=== PATIENT | male | born 1960 | race Two or more races ===

== ENCOUNTER → 2019-03-12 | Outpatient (CLI) | payer MEDICARE, MEDICAID ==
[~2019-03-12] VITALS: Ht 175.3 cm; Wt 64.9 kg
[2019-03-12 09:00] VITALS: BP 144/64
== END | disposition home or self-care (01) ==
LOC: HBOWC 08:46
PROVIDERS: ATTEND Emergency Medicine
DX: L89.153 Pressure ulcer of sacral region, stage 3 (principal); E46 Unspecified protein-calorie malnutrition; I25.2 Old myocardial infarction; E11.39 Type 2 diabetes mellitus with other diabetic ophthalmic complication; H42 Glaucoma in diseases classified elsewhere; Z86.73 Personal history of transient ischemic attack (TIA), and cerebral infarction without residual deficits

== ENCOUNTER → 2019-04-01 | Outpatient (CLI) | payer MEDICARE, MEDICAID ==
[~2019-04-01] MED LIST: AMLO10TA7 PO; CARV25 PO; CLOP75TA3 PO; FURO80 PO; INSLAN SQ; INSU100V SQ; ISOS30TA6 PO; KDUR20 PO; LIDOCAINE 4% 50 ML SOLUTION TP ONE; MIRT15 PO; TAMS-1 PO; TRAM50TA4 PO
[2019-04-01 08:00] VITALS: BP 115/55
[2019-04-01 12:37] LABS: BASOPHILS % (AUTO) 0.9 % (0.0-2.0); EOSINOPHILS % (AUTO) 1.5 % (1.0-6.0); HEMOGLOBIN 14.4 g/dL (13.5-17.5); LYMPHOCYTES # (AUTO) 0.7 K/uL (1.0-4.8); LYMPHOCYTES % (AUTO) 11.4 % (22.0-44.0); MEAN CORPUSCULAR HEMOGLOBIN 21.6 pg (26.0-34.0); MEAN CORPUSCULAR VOLUME 72 fL (80-100); MONOCYTES # (AUTO) 0.3 K/uL (0.1-1.0); MONOCYTES % (AUTO) 5.1 % (2.0-9.0); NEUTROPHILS # (AUTO) 4.7 K/uL (1.8-7.7); NEUTROPHILS % (AUTO) 81.1 % (40.0-70.0); PLATELET COUNT (AUTO) 204 K/uL (150-450); RED BLOOD CELL COUNT(AUTO) 6.66 MIL/uL (4.50-5.90); RED CELL DISTRIBUTION WIDTH 20.1 % (11.5-14.5)
[2019-04-01 12:43] LABS: HEMOGLOBIN A1C 7.6 % (4.5-6.2)
[2019-04-01 12:54] LABS: ALBUMIN 3.1 g/dL (3.4-5.0); BILIRUBIN,TOTAL 0.7 mg/dL (0.1-1.0); CREATININE 1.5 mg/dL (0.60-1.30); POTASSIUM 3.3 mmol/L (3.5-5.1); TOTAL PROTEIN, SERUM 6.5 g/dL (6.4-8.2)
[2019-04-01 13:04] LABS: INR 1.1 (0.9-1.1); PROTHROMBIN TIME 11.1 SEC (9.4-11.6)
== END | disposition home or self-care (01) ==
LOC: HBOWC 07:54
PROVIDERS: ATTEND Surgery Plastic and Reconstructive Surgery
DX: E11.621 Type 2 diabetes mellitus with foot ulcer (principal); L89.154 Pressure ulcer of sacral region, stage 4; R59.0 Localized enlarged lymph nodes
CPT/HCPCS: 83036; 84134; 93970

== ENCOUNTER → 2019-04-08 | Outpatient (CLI) | payer MEDICARE, MEDICAID ==
[2019-04-08 08:26] VITALS: BP 138/78
== END | disposition home or self-care (01) ==
LOC: HBOWC 08:10
PROVIDERS: ATTEND Surgery Plastic and Reconstructive Surgery
DX: E11.622 Type 2 diabetes mellitus with other skin ulcer (principal); L89.153 Pressure ulcer of sacral region, stage 3; L98.495 Non-pressure chronic ulcer of skin of other sites with muscle involvement without evidence of necrosis; E46 Unspecified protein-calorie malnutrition; I25.2 Old myocardial infarction; E11.39 Type 2 diabetes mellitus with other diabetic ophthalmic complication; H42 Glaucoma in diseases classified elsewhere; M62.50 Muscle wasting and atrophy, not elsewhere classified, unspecified site; R54 Age-related physical debility; Z86.73 Personal history of transient ischemic attack (TIA), and cerebral infarction without residual deficits; Z79.4 Long term (current) use of insulin
CPT/HCPCS: 11043

== ENCOUNTER → 2019-04-15 | Outpatient (CLI) | payer OTHER ==
[2019-04-15 08:29] VITALS: BP 136/65
== END | disposition home or self-care (01) ==
LOC: HBOWC 08:01
PROVIDERS: ATTEND Surgery Plastic and Reconstructive Surgery
DX: E11.622 Type 2 diabetes mellitus with other skin ulcer (principal); L89.153 Pressure ulcer of sacral region, stage 3; L98.495 Non-pressure chronic ulcer of skin of other sites with muscle involvement without evidence of necrosis; E46 Unspecified protein-calorie malnutrition; I25.2 Old myocardial infarction; E11.39 Type 2 diabetes mellitus with other diabetic ophthalmic complication; H42 Glaucoma in diseases classified elsewhere; R54 Age-related physical debility; Z86.73 Personal history of transient ischemic attack (TIA), and cerebral infarction without residual deficits; Z79.4 Long term (current) use of insulin
CPT/HCPCS: 11043

== ENCOUNTER → 2019-04-22 | Outpatient (CLI) | payer OTHER ==
[2019-04-22 08:00] VITALS: BP 118/57
== END | disposition home or self-care (01) ==
LOC: HBOWC 07:59
PROVIDERS: ATTEND Surgery Plastic and Reconstructive Surgery
DX: E11.622 Type 2 diabetes mellitus with other skin ulcer (principal); L89.153 Pressure ulcer of sacral region, stage 3; L98.495 Non-pressure chronic ulcer of skin of other sites with muscle involvement without evidence of necrosis; E46 Unspecified protein-calorie malnutrition; I25.2 Old myocardial infarction; E11.39 Type 2 diabetes mellitus with other diabetic ophthalmic complication; H42 Glaucoma in diseases classified elsewhere; R54 Age-related physical debility; M62.50 Muscle wasting and atrophy, not elsewhere classified, unspecified site; Z79.4 Long term (current) use of insulin; Z86.73 Personal history of transient ischemic attack (TIA), and cerebral infarction without residual deficits
CPT/HCPCS: 11043

== ENCOUNTER → 2019-04-29 | Outpatient (CLI) | payer OTHER ==
[~2019-04-29] MED LIST changes: -LIDOCAINE 4% 50 ML SOLUTION TP ONE
[2019-04-29 08:05] VITALS: BP 149/75
== END | disposition home or self-care (01) ==
LOC: HBOWC 07:52
PROVIDERS: ATTEND Surgery Plastic and Reconstructive Surgery
DX: E11.622 Type 2 diabetes mellitus with other skin ulcer (principal); L89.153 Pressure ulcer of sacral region, stage 3; L98.495 Non-pressure chronic ulcer of skin of other sites with muscle involvement without evidence of necrosis; E46 Unspecified protein-calorie malnutrition; I25.2 Old myocardial infarction; E11.39 Type 2 diabetes mellitus with other diabetic ophthalmic complication; H42 Glaucoma in diseases classified elsewhere; R54 Age-related physical debility; M62.562 Muscle wasting and atrophy, not elsewhere classified, left lower leg; M62.561 Muscle wasting and atrophy, not elsewhere classified, right lower leg; Z86.73 Personal history of transient ischemic attack (TIA), and cerebral infarction without residual deficits; Z79.4 Long term (current) use of insulin
CPT/HCPCS: 11043

== ENCOUNTER → 2019-05-06 | Outpatient (CLI) | payer OTHER ==
[2019-05-06 08:05] VITALS: BP 132/65
== END | disposition home or self-care (01) ==
LOC: HBOWC 08:15
PROVIDERS: ATTEND Surgery Plastic and Reconstructive Surgery
DX: E11.622 Type 2 diabetes mellitus with other skin ulcer (principal); L89.153 Pressure ulcer of sacral region, stage 3; L98.495 Non-pressure chronic ulcer of skin of other sites with muscle involvement without evidence of necrosis; E46 Unspecified protein-calorie malnutrition; I25.2 Old myocardial infarction; E11.39 Type 2 diabetes mellitus with other diabetic ophthalmic complication; H42 Glaucoma in diseases classified elsewhere; R54 Age-related physical debility; M62.562 Muscle wasting and atrophy, not elsewhere classified, left lower leg; M62.561 Muscle wasting and atrophy, not elsewhere classified, right lower leg; Z86.73 Personal history of transient ischemic attack (TIA), and cerebral infarction without residual deficits; Z79.4 Long term (current) use of insulin
CPT/HCPCS: 11043

== ENCOUNTER → 2019-06-03 | Outpatient (CLI) | payer OTHER ==
[~2019-06-03] MED LIST changes: +LIDOCAINE 4% 50 ML SOLUTION TP ONE
[2019-06-03 08:10] VITALS: BP 130/67
== END | disposition home or self-care (01) ==
LOC: HBOWC 08:07
PROVIDERS: ATTEND Surgery Plastic and Reconstructive Surgery
DX: E11.622 Type 2 diabetes mellitus with other skin ulcer (principal); L89.153 Pressure ulcer of sacral region, stage 3; L98.495 Non-pressure chronic ulcer of skin of other sites with muscle involvement without evidence of necrosis; E46 Unspecified protein-calorie malnutrition; I25.2 Old myocardial infarction; E11.39 Type 2 diabetes mellitus with other diabetic ophthalmic complication; H42 Glaucoma in diseases classified elsewhere; M62.562 Muscle wasting and atrophy, not elsewhere classified, left lower leg; M62.561 Muscle wasting and atrophy, not elsewhere classified, right lower leg; R53.81 Other malaise; Z86.73 Personal history of transient ischemic attack (TIA), and cerebral infarction without residual deficits; Z79.4 Long term (current) use of insulin
CPT/HCPCS: 11043

== ENCOUNTER → 2019-06-10 | Outpatient (CLI) | payer OTHER ==
[2019-06-10 08:00] VITALS: BP 131/63
== END | disposition home or self-care (01) ==
LOC: HBOWC 08:11
PROVIDERS: ATTEND Surgery Plastic and Reconstructive Surgery
DX: E11.622 Type 2 diabetes mellitus with other skin ulcer (principal); L89.153 Pressure ulcer of sacral region, stage 3; L98.495 Non-pressure chronic ulcer of skin of other sites with muscle involvement without evidence of necrosis; E46 Unspecified protein-calorie malnutrition; I25.2 Old myocardial infarction; E11.39 Type 2 diabetes mellitus with other diabetic ophthalmic complication; H42 Glaucoma in diseases classified elsewhere; M62.562 Muscle wasting and atrophy, not elsewhere classified, left lower leg; M62.561 Muscle wasting and atrophy, not elsewhere classified, right lower leg; R53.81 Other malaise; Z86.73 Personal history of transient ischemic attack (TIA), and cerebral infarction without residual deficits; Z79.4 Long term (current) use of insulin
CPT/HCPCS: 11043; 97605

== ENCOUNTER → 2019-06-17 | Outpatient (CLI) | payer MEDICARE, OTHER ==
[~2019-06-17] MED LIST changes: -LIDOCAINE 4% 50 ML SOLUTION TP ONE
[2019-06-17 08:43] VITALS: BP 137/64
== END | disposition home or self-care (01) ==
LOC: HBOWC 08:03
PROVIDERS: ATTEND Surgery Plastic and Reconstructive Surgery
DX: E11.622 Type 2 diabetes mellitus with other skin ulcer (principal); L89.153 Pressure ulcer of sacral region, stage 3; L98.495 Non-pressure chronic ulcer of skin of other sites with muscle involvement without evidence of necrosis; E46 Unspecified protein-calorie malnutrition; I25.2 Old myocardial infarction; E11.39 Type 2 diabetes mellitus with other diabetic ophthalmic complication; H42 Glaucoma in diseases classified elsewhere; M62.562 Muscle wasting and atrophy, not elsewhere classified, left lower leg; M62.561 Muscle wasting and atrophy, not elsewhere classified, right lower leg; R53.81 Other malaise; Z86.73 Personal history of transient ischemic attack (TIA), and cerebral infarction without residual deficits; Z79.4 Long term (current) use of insulin
CPT/HCPCS: 11043; 97605

== ENCOUNTER → 2019-06-25 | Outpatient (CLI) | payer MEDICARE, OTHER ==
[~2019-06-25] MED LIST changes: +LIDOCAINE 4% 50 ML SOLUTION TP ONE
[2019-06-25 08:00] VITALS: BP 144/73
== END | disposition home or self-care (01) ==
LOC: HBOWC 08:36
PROVIDERS: ATTEND Emergency Medicine
DX: E11.622 Type 2 diabetes mellitus with other skin ulcer (principal); L89.153 Pressure ulcer of sacral region, stage 3; L98.495 Non-pressure chronic ulcer of skin of other sites with muscle involvement without evidence of necrosis; E46 Unspecified protein-calorie malnutrition; I25.2 Old myocardial infarction; E11.39 Type 2 diabetes mellitus with other diabetic ophthalmic complication; H42 Glaucoma in diseases classified elsewhere; M62.562 Muscle wasting and atrophy, not elsewhere classified, left lower leg; M62.561 Muscle wasting and atrophy, not elsewhere classified, right lower leg; R53.81 Other malaise; Z86.73 Personal history of transient ischemic attack (TIA), and cerebral infarction without residual deficits; Z79.4 Long term (current) use of insulin
CPT/HCPCS: 11042

== ENCOUNTER → 2019-08-12 | Outpatient (CLI) | payer MEDICARE, OTHER ==
[~2019-08-12] MED LIST changes: +LIDOCAINE 2% 5 ML JELLY TP ONE; -LIDOCAINE 4% 50 ML SOLUTION TP ONE
== END | disposition home or self-care (01) ==
LOC: HBOWC 08:11
PROVIDERS: ATTEND Surgery Plastic and Reconstructive Surgery
DX: E11.622 Type 2 diabetes mellitus with other skin ulcer (principal); L89.153 Pressure ulcer of sacral region, stage 3; L98.495 Non-pressure chronic ulcer of skin of other sites with muscle involvement without evidence of necrosis; E46 Unspecified protein-calorie malnutrition; I25.2 Old myocardial infarction; E11.39 Type 2 diabetes mellitus with other diabetic ophthalmic complication; H42 Glaucoma in diseases classified elsewhere; M62.562 Muscle wasting and atrophy, not elsewhere classified, left lower leg; M62.561 Muscle wasting and atrophy, not elsewhere classified, right lower leg; R53.81 Other malaise; Z86.73 Personal history of transient ischemic attack (TIA), and cerebral infarction without residual deficits; Z79.4 Long term (current) use of insulin
CPT/HCPCS: 11044

== ENCOUNTER → 2019-08-19 | Outpatient (CLI) | payer MEDICARE, OTHER ==
[~2019-08-19] MED LIST changes: -LIDOCAINE 2% 5 ML JELLY TP ONE
== END | disposition home or self-care (01) ==
LOC: HBOWC 07:50
PROVIDERS: ATTEND Surgery Plastic and Reconstructive Surgery
DX: E11.622 Type 2 diabetes mellitus with other skin ulcer (principal); L89.153 Pressure ulcer of sacral region, stage 3; L98.495 Non-pressure chronic ulcer of skin of other sites with muscle involvement without evidence of necrosis; E46 Unspecified protein-calorie malnutrition; I25.2 Old myocardial infarction; E11.39 Type 2 diabetes mellitus with other diabetic ophthalmic complication; H42 Glaucoma in diseases classified elsewhere; M62.562 Muscle wasting and atrophy, not elsewhere classified, left lower leg; M62.561 Muscle wasting and atrophy, not elsewhere classified, right lower leg; R53.81 Other malaise; Z86.73 Personal history of transient ischemic attack (TIA), and cerebral infarction without residual deficits; Z79.4 Long term (current) use of insulin
CPT/HCPCS: 11043

== ENCOUNTER → 2019-09-02 | Outpatient (CLI) | payer MEDICARE, OTHER ==
[~2019-09-02] MED LIST changes: +LIDOCAINE 4% 50 ML SOLUTION TP ONE; +MIRT-92 PO; -MIRT15 PO
== END | disposition home or self-care (01) ==
LOC: HBOWC 09:15
PROVIDERS: ATTEND Surgery Plastic and Reconstructive Surgery
DX: E11.622 Type 2 diabetes mellitus with other skin ulcer (principal); L89.153 Pressure ulcer of sacral region, stage 3; L98.495 Non-pressure chronic ulcer of skin of other sites with muscle involvement without evidence of necrosis; E46 Unspecified protein-calorie malnutrition; I25.2 Old myocardial infarction; E11.39 Type 2 diabetes mellitus with other diabetic ophthalmic complication; H42 Glaucoma in diseases classified elsewhere; M62.562 Muscle wasting and atrophy, not elsewhere classified, left lower leg; M62.561 Muscle wasting and atrophy, not elsewhere classified, right lower leg; R53.81 Other malaise; Z86.73 Personal history of transient ischemic attack (TIA), and cerebral infarction without residual deficits; Z79.4 Long term (current) use of insulin
CPT/HCPCS: 11043

== ENCOUNTER → 2019-09-16 | Outpatient (CLI) | payer MEDICARE, OTHER ==
[~2019-09-16] MED LIST changes: -LIDOCAINE 4% 50 ML SOLUTION TP ONE
== END | disposition home or self-care (01) ==
LOC: HBOWC 08:14
PROVIDERS: ATTEND Surgery Plastic and Reconstructive Surgery
DX: E11.622 Type 2 diabetes mellitus with other skin ulcer (principal); L89.153 Pressure ulcer of sacral region, stage 3; L98.495 Non-pressure chronic ulcer of skin of other sites with muscle involvement without evidence of necrosis; E46 Unspecified protein-calorie malnutrition; I25.2 Old myocardial infarction; E11.39 Type 2 diabetes mellitus with other diabetic ophthalmic complication; H42 Glaucoma in diseases classified elsewhere; M62.562 Muscle wasting and atrophy, not elsewhere classified, left lower leg; M62.561 Muscle wasting and atrophy, not elsewhere classified, right lower leg; R53.81 Other malaise; Z86.73 Personal history of transient ischemic attack (TIA), and cerebral infarction without residual deficits; Z79.4 Long term (current) use of insulin
CPT/HCPCS: 11044

== ENCOUNTER → 2019-09-30 | Outpatient (CLI) | payer MEDICARE, OTHER ==
[~2019-09-30] MED LIST changes: +LIDOCAINE 2% 5 ML JELLY ONE
== END | disposition home or self-care (01) ==
LOC: HBOWC 07:49
PROVIDERS: ATTEND Surgery Plastic and Reconstructive Surgery
DX: E11.622 Type 2 diabetes mellitus with other skin ulcer (principal); L89.153 Pressure ulcer of sacral region, stage 3; L98.495 Non-pressure chronic ulcer of skin of other sites with muscle involvement without evidence of necrosis; E46 Unspecified protein-calorie malnutrition; I25.2 Old myocardial infarction; E11.39 Type 2 diabetes mellitus with other diabetic ophthalmic complication; H42 Glaucoma in diseases classified elsewhere; M62.562 Muscle wasting and atrophy, not elsewhere classified, left lower leg; M62.561 Muscle wasting and atrophy, not elsewhere classified, right lower leg; R53.81 Other malaise; Z86.73 Personal history of transient ischemic attack (TIA), and cerebral infarction without residual deficits; Z79.4 Long term (current) use of insulin
CPT/HCPCS: 11043

== ENCOUNTER → 2019-10-07 | Outpatient (CLI) | payer MEDICARE, OTHER ==
[~2019-10-07] MED LIST changes: -LIDOCAINE 2% 5 ML JELLY ONE; +LIDOCAINE 2% 5 ML JELLY TP ONE
== END | disposition home or self-care (01) ==
LOC: HBOWC 09:51
PROVIDERS: ATTEND Surgery Plastic and Reconstructive Surgery
DX: E11.622 Type 2 diabetes mellitus with other skin ulcer (principal); L89.154 Pressure ulcer of sacral region, stage 4; L98.495 Non-pressure chronic ulcer of skin of other sites with muscle involvement without evidence of necrosis; I25.2 Old myocardial infarction; E11.39 Type 2 diabetes mellitus with other diabetic ophthalmic complication; H42 Glaucoma in diseases classified elsewhere; M62.562 Muscle wasting and atrophy, not elsewhere classified, left lower leg; M62.561 Muscle wasting and atrophy, not elsewhere classified, right lower leg; R26.9 Unspecified abnormalities of gait and mobility; E44.0 Moderate protein-calorie malnutrition; I25.10 Atherosclerotic heart disease of native coronary artery without angina pectoris; K21.9 Gastro-esophageal reflux disease without esophagitis; E78.5 Hyperlipidemia, unspecified; I11.0 Hypertensive heart disease with heart failure; I50.32 Chronic diastolic (congestive) heart failure; Z79.4 Long term (current) use of insulin; Z68.20 Body mass index [BMI] 20.0-20.9, adult; Z86.73 Personal history of transient ischemic attack (TIA), and cerebral infarction without residual deficits
CPT/HCPCS: 11043

== ENCOUNTER → 2019-10-14 | Outpatient (CLI) | payer MEDICARE, OTHER ==
[~2019-10-14] MED LIST changes: -LIDOCAINE 2% 5 ML JELLY TP ONE; +LIDOCAINE 4% 50 ML SOLUTION TP ONE
== END | disposition home or self-care (01) ==
LOC: HBOWC 09:09
PROVIDERS: ATTEND Surgery Plastic and Reconstructive Surgery
DX: E11.622 Type 2 diabetes mellitus with other skin ulcer (principal); L89.154 Pressure ulcer of sacral region, stage 4; L98.495 Non-pressure chronic ulcer of skin of other sites with muscle involvement without evidence of necrosis; I25.2 Old myocardial infarction; E11.39 Type 2 diabetes mellitus with other diabetic ophthalmic complication; H42 Glaucoma in diseases classified elsewhere; M62.562 Muscle wasting and atrophy, not elsewhere classified, left lower leg; M62.561 Muscle wasting and atrophy, not elsewhere classified, right lower leg; R26.9 Unspecified abnormalities of gait and mobility; E44.0 Moderate protein-calorie malnutrition; I25.10 Atherosclerotic heart disease of native coronary artery without angina pectoris; K21.9 Gastro-esophageal reflux disease without esophagitis; E78.5 Hyperlipidemia, unspecified; I11.0 Hypertensive heart disease with heart failure; I50.32 Chronic diastolic (congestive) heart failure; Z79.4 Long term (current) use of insulin; Z68.20 Body mass index [BMI] 20.0-20.9, adult; Z86.73 Personal history of transient ischemic attack (TIA), and cerebral infarction without residual deficits
CPT/HCPCS: 11042